=== PATIENT | female | born 1955 | race Two or more races ===

== ENCOUNTER 2016-08-24 06:33 | Day surgery (SDC) | payer MEDICAID ==
[2016-08-24] MEDS ORDERED: LR 1,000 ML IV ONE (07:12)
[2016-08-24] MEDS ORDERED: LIDOCAINE 1% 5 ML SDV ID PRN (07:12)
[2016-08-24] MEDS ORDERED: PROPOFOL/EMULSION 500 MG/50 ML BOTTLE IV ONE (08:18)
--- NOTE | 2016-08-24 09:09 | GPN ---
[f rep st] PROCEDURE NOTE PREPROCEDURE DIAGNOSIS: Screening colonoscopy. POSTPROCEDURE DIAGNOSIS: Colon polyps, status post removal. PROCEDURE: Colonoscopy with biopsy. MEDICATIONS: Monitored anesthesia care. INDICATIONS: The patient is a 60-year-old female here for screening colonoscopy. She has no family history of colon cancer or colon polyps. This is her first colonoscopy. The risks and benefits of the procedure were discussed with the patient. Consent obtained. Risks include, but not limited t o, bleeding, perforation, or risks related to sedation. The patient is ASA class II. DESCRIPTION OF PROCEDURE: The adult colonoscope was advanced into the terminal ileum, which appeare d normal. The ileocecal valve, appendiceal orifice, cecum, ascending colon, hepatic flexure, transv erse colon, splenic flexure, descending colon appeared normal. There was a 2 mm polyp in the sigmoi d colon. Removed using cold biopsy forceps and sent off to Pathology. The remaining sigmoid colon and rectum were normal. Retroflexed views in the rectum were normal. IMPRESSION: Small sigmoid colon polyp status post removal using cold biopsy forceps. RECOMMENDATIONS: 1. Advance diet as tolerated. 2. Discharge to home with escort. 3. Follow up the pathology results, which are available within 10 days. 4. Repeat colonoscopy depending on the pathology results. If an adenomatous polyp is found, a repe at colonoscopy in 5 years is recommended. Otherwise repeat colonoscopy in 10 years is appropriate. 5. Continue current medications. Thank you for allowing me to participate in the care of your patient. Please do not hesitate to nataliia l with questions. /[id number]
== END 2016-08-24 10:00 | disposition home or self-care (01) ==
LOC: FSGY 06:33
PROVIDERS: ATTEND Internal Medicine Gastroenterology
PROC: 0DBN8ZX Excision of Sigmoid Colon, Via Natural or Artificial Opening Endoscopic, Diagnostic (ICD-10-PCS; principal; 2016-08-24 08:30)
DX: Z12.11 Encounter for screening for malignant neoplasm of colon (principal); D12.5 Benign neoplasm of sigmoid colon; E03.9 Hypothyroidism, unspecified; E78.5 Hyperlipidemia, unspecified; I10 Essential (primary) hypertension
CPT/HCPCS: J2704